=== PATIENT | male | born 1930 | race Caucasian/White ===

== ENCOUNTER 2016-07-12 22:48 | Inpatient (IN) | payer MEDICARE, OTHER ==
[~2016-07-12] VITALS: Ht 180.3 cm; Wt 82.6 kg
[2016-07-13] MEDS ORDERED: ACETAMINOPHEN 325 MG TAB ONE (00:47)
[2016-07-13] MEDS ORDERED: DILAUDID 1 MG/ML AMP ONE ×2 (01:10→02:14)
[2016-07-13] MEDS ORDERED: DEXTROSE 50% SYRINGE 50 ML IV PRN (01:50)
[2016-07-13] MEDS ORDERED: GLUCAGON 1 MG VIAL IM PRN (01:50)
[2016-07-13 03:50] VITALS: Ht 180.3 cm; Wt 82.6 kg
[2016-07-13 04:08] VITALS: BP_SYST 137; BP_SYST 140; RESP 18; TEMP 98.1
[2016-07-13] MEDS: MORPHINE 2 MG/ML SYR IV PRN ×3 (05:16→15:13)
[2016-07-13 07:43] VITALS: BP_SYST 147; TEMP 97.8
[2016-07-13] MEDS ORDERED: ACETAMINOPHEN 325 MG TAB PO PRN (08:25)
[2016-07-13] MEDS ORDERED: POLYETHYLENE GLYCOL 17 GM PACKET PO PRN (08:25)
[2016-07-13] MEDS ORDERED: ERGOCALCIFEROL 50,000 UNITS (1.25 MG) CAP PO SCH (09:00)
[2016-07-13 11:43] VITALS: BP_SYST 147; RESP 18; TEMP 98.1
[2016-07-13] MEDS: DILTIAZEM CD 300 MG CAP PO SCH (12:15)
[2016-07-13] MEDS: DIGOXIN 0.125 MG TAB PO SCH (12:15)
[2016-07-13] MEDS: LORATADINE 10 MG TAB PO SCH ×2 (12:15→20:16)
[2016-07-13] MEDS: TAMSULOSIN 0.4 MG CAP PO SCH (12:15)
[2016-07-13] MEDS: Finasteride 5 MG TAB PO SCH (12:15)
[2016-07-13] MEDS: DESONIDE 0.05% TOPICAL SCH (12:16)
[2016-07-13 16:15] VITALS: BP_SYST 129; RESP 18; TEMP 97.3
[2016-07-13] MEDS: WARFARIN 4 MG TAB PO SCH (16:43)
[2016-07-13 19:28] VITALS: BP_SYST 107; RESP 18; TEMP 98.3
[2016-07-13] MEDS ORDERED: MIRTAZAPINE 15 MG TAB PO SCH (21:00)
[2016-07-13 23:29] VITALS: BP_SYST 122; RESP 18; TEMP 98.2
[2016-07-14 03:48] VITALS: BP_SYST 150; RESP 18; TEMP 98
[2016-07-14 07:11] VITALS: BP_SYST 138; RESP 22; TEMP 98.5
[2016-07-14] MEDS: DILTIAZEM CD 300 MG CAP PO SCH (09:05)
[2016-07-14] MEDS: LORATADINE 10 MG TAB PO SCH (09:05)
[2016-07-14] MEDS: TAMSULOSIN 0.4 MG CAP PO SCH (09:05)
[2016-07-14] MEDS: Finasteride 5 MG TAB PO SCH (09:05)
[2016-07-14] MEDS: DESONIDE 0.05% TOPICAL SCH (09:06)
[2016-07-14 11:23] VITALS: BP_SYST 131; RESP 22; TEMP 98.1
[2016-07-14 11:27] VITALS: BP_SYST 131; RESP 22; TEMP 98.1
[2016-07-14] MEDS: DIGOXIN 0.125 MG TAB PO SCH (11:55)
[2016-07-14] MEDS: WARFARIN 4 MG TAB PO SCH (14:44)
[2016-07-16] MEDS ORDERED: ERGOCALCIFEROL 50,000 UNITS (1.25 MG) CAP PO SCH (09:00)
== END 2016-07-14 19:51 | DRG 536 ==
LOC: CANRESERV → ENRESERVTM → ENRESERVDT → ER 22:48 → ENPENDDIS 07-13 00:58 → EMR 07-13 00:58 → 2NO 07-13 03:21
PROVIDERS: ADMIT Internal Medicine; ATTEND Internal Medicine
CPT/HCPCS: 36415; 71010; 80048; 80053; 80162; 81001; 82947; 83880; 84439; 84443; 85025; 85610; 85730; 87088; 93005; 96374; 96376